=== PATIENT | male | born 1950 | race Caucasian/White ===

== ENCOUNTER 2016-09-24 18:24 | Emergency (ER) | payer SELFPAY ==
[~2016-09-24 18:24] MED LIST: ASPIRIN81 M2 PO; CARVEDILOL6.25 MG PO; CETIRIZINE HCL10 MG PO; FLONASE16 GM; METFORMIN PO; MEVACOR PO; NOVOLOG MI100 UNIT/1 SUBQ; VICTOZA0.6 MG/0.1 SQ
== END 2016-09-24 20:45 | disposition home or self-care (01) ==
LOC: SED 18:24
DX: S20.212A Contusion of left front wall of thorax, initial encounter (principal); R03.0 Elevated blood-pressure reading, without diagnosis of hypertension; E11.9 Type 2 diabetes mellitus without complications; Z79.82 Long term (current) use of aspirin; Z79.4 Long term (current) use of insulin; Z79.899 Other long term (current) drug therapy; Z87.891 Personal history of nicotine dependence; W19.XXXA Unspecified fall, initial encounter; Y92.830 Public park as the place of occurrence of the external cause
CPT/HCPCS: 71020; 96372; 99283; J1885